=== PATIENT | male | born 1980 | race African-American/Black ===

== ENCOUNTER 2019-02-26 09:45 | Emergency (ER) | payer SELFPAY ==
[2019-02-26 09:53] VITALS: BP 122/83
[2019-02-26] MEDS ORDERED: IBUPROFEN 600 MG TABLET PO ONE (10:05)
[2019-02-26] MEDS ORDERED: ACETAMINOPHEN 325 MG TABLET PO ONE (10:05)
[2019-02-26] MEDS ORDERED: LIDOCAINE 5% (700 MG) TRANSDERMAL ADH..PATCH TP ONE (10:05)
--- NOTE | 2019-02-26 10:07 | ER Document Report ---
HPI - HPI Time Seen by Provider: 02/26/19 09:55 Pain Level: 3 Context: Patient is a 39-year-old male who presents to the emergency department with a chief complaint of left sided back pain right underneath his shoulder blade. He states that he started working out at the gym, after being off for 6 months. He describes his pain as a sore pain. He states that he was lifting heavy weights and did not use himself into working out again. He has not taken any medication to help with his pain. Denies any inability to move his upper and lower extremities, denies any weakness, or history of IV drug abuse. - CONSTITUTIONAL Constitutional: DENIES: Fever, Chills - EENT EENT: DENIES: Sore Throat - NEURO Neurology: DENIES: Headache, Weakness - CARDIOVASCULAR Cardiovascular: DENIES: Chest pain - RESPIRATORY Respiratory: DENIES: Trouble Breathing, Coughing - GASTROINTESTINAL Gastrointestinal: DENIES: Abdominal Pain - MUSCULOSKELETAL Musculoskeletal: REPORTS: Back Pain - Left subscapular area. DENIES: Extremity pain, Neck Pain - DERM Skin Color: Normal Skin Problems: None Past Medical History - Social History Smoking Status: Unknown if Ever Smoked Family History: Reviewed & Not Pertinent Vertical Provider Document - CONSTITUTIONAL Agree With Documented VS: Yes Exam Limitations: No Limitations - INFECTION CONTROL TRAVEL OUTSIDE OF THE [place] IN LAST 30 DAYS: No - HEENT HEENT: Atraumatic, Normocephalic - NECK Neck: Normal Inspection - RESPIRATORY Respiratory: Breath Sounds Normal, No Respiratory Distress - CARDIOVASCULAR Cardiovascular: Regular Rate, Regular Rhythm Pulses: Normal: Radial - BACK Back: Normal Inspection Notes: Tenderness noted to the left subscapular area of patient's back, consistent with muscle tension in the area. Course - Re-evaluation Re-evalutation: 02/26/19 10:00 Differential diagnosis for back pain includes muscle spasm, muscle strain, slipped disc cauda equina syndrome, vertebral fracture, vertebral tumor, epidural abscess, pyelonephritis, or AAA. Based on history and exam, the most likely etiology of the patient's back pain is due to muscle tension. Emergent MRI is not indicated at this time because the patient does not have new weakness, or cauda equina syndrome. Patient does not have bladder or bowel dysfunction. Patient does not have history of IV drug use, therefore, I do not suspect an epidural abscess. Patient does not have recent weight loss or night sweats, and does not have a known history of cancer. I suspect patient's back pain is due to him working out for the first time in 6 months. I do not suspect he has any life etiology at this time. He does have muscle tension noted on physical exam. He will be given ibuprofen and Tylenol to help with his symptoms. He will also be given Robaxin for home. Follow-up p recautions were given. Verbal discharge instructions were given to the patient. They verbalized understanding. They are stable for discharge. - Vital Signs Vital signs: Temp Pulse Resp BP Pulse Ox 97.8 F 62 16 122/83 98 02/26/19 09:51 02/26/19 09:51 02/26/19 09:51 02/26/19 09:51 02/26/19 09:51 Discharge - Discharge Clinical Impression: Left-sided back pain Qualifiers: Back pain location: thoracic back pain Chronicity: acute Qualified Code(s): M54.6 - Pain in thoracic spine Condition: Stable Disposition: HOME, SELF-CARE Additional Instructions: You were seen today in the emergency department for left back pain underneath your shoulder. Your pain is due to muscle tension in your back. Please have t he area massaged. Use a foam roller to help with your muscle tension. You can take ibuprofen 600 mg and acetaminophen 1000 mg every 6 hours as needed for your pain. You have also been prescribed lidocaine patches and Robaxin. Please use as directed. Please follow-up with your primary care provider in regards to this visit. Prescriptions: Methocarbamol [Robaxin 500 mg Tablet] 1,000 mg PO QHS #12 tablet Lidocaine [Lidoderm 5% (700 mg) Transdermal Patch] 1 patch TP DAILY #7 adh..patch
== END 2019-02-26 10:20 | disposition home or self-care (01) ==
LOC: ER 09:45
DX: M54.6 Pain in thoracic spine (principal)
CPT/HCPCS: 99283